=== PATIENT | male | born 1945 | race Hispanic/Latino ===

== ENCOUNTER 2020-11-30 02:43 | Inpatient (IN) | payer OTHER, MEDICARE ==
[~2020-11-30] VITALS: Ht 162.6 cm; Wt 68.5 kg
[2020-11-30 03:33] LABS: ABG BASE EXCESS -3.5 mmol/L (-2.0-3.0); ABG HCO3 21.9 mmol/L (21.0-28.0); ABG OXYGEN SATURATION 97.5 % (95.0-99.0); ABG PCO2 41 mmHg (35-48)
[2020-11-30 03:48] LABS: BASOPHILS % (AUTO) 0.4 % (0.0-5.0); EOSINOPHILS % (AUTO) 0.8 % (0.0-8.0); HEMATOCRIT 38.7 % (42-54); LYMPHOCYTES % (AUTO) 15.6 % (21.0-51.0); MEAN CORPUSCULAR HEMOGLOBIN 31.5 pg (27.0-33.0); MEAN CORPUSCULAR HGB CONC 34.6 g/dL (32.0-36.0); MEAN CORPUSCULAR VOLUME 90.8 fL (79-99); MONOCYTES % (AUTO) 6.3 % (3.0-13.0); NEUTROPHILS % (AUTO) 76.4 % (40.0-77.0); PLATELET COUNT (AUTO) 318 K/uL (130-400); RED BLOOD CELL COUNT(AUTO) 4.26 MIL/uL (4.50-6.20); RED CELL DISTRIBUTION WIDTH 12.9 % (11.0-15.5); WHITE BLOOD COUNT (AUTO) 16.6 K/uL (4.8-10.8)
[2020-11-30] MEDS ORDERED: NITROGLYCERIN 0.4 MG SL TAB SL ONE (03:54)
[2020-11-30] MEDS ORDERED: FUROSEMIDE 40MG VIAL ONE ×3 (03:54→20:56)
[2020-11-30] MEDS ORDERED: DILTIAZEM 125 MG/25 ML INJ IV ONE (03:57)
[2020-11-30 03:58] LABS: INR 1.01 (0.85-1.15)
[2020-11-30 03:59] LABS: PARTIAL THROMBOPLASTIN TIME 22.8 SEC (26.3-35.5)
[2020-11-30] MEDS ORDERED: AMIODARONE 150MG VIAL ONE ×2 (04:02→06:20)
[2020-11-30 04:05] LABS: ALBUMIN 3.9 g/dL (3.5-5.0); BILIRUBIN,TOTAL 0.8 mg/dL (0.2-1.0); TOTAL PROTEIN, SERUM 7.8 g/dL (6.0-8.3)
[2020-11-30 04:12] LABS: B-TYPE NATRIURETIC PEPTIDE 843 pg/mL (0-100)
[2020-11-30] MEDS ORDERED: ASPIRIN 81MG CHEW TAB ONE (05:44)
[2020-11-30] MEDS ORDERED: ENOXAPARIN SODIUM 80 MG/0.8 ML SQ ONE (05:44)
[2020-11-30] MEDS ORDERED: AMIODARONE 900MG VIAL 150 MG in DEXTROSE 5%-WATER 100 ML IV SCH (06:00)
[2020-11-30] MEDS ORDERED: DEXTROSE 5%-WATER 500 ML IV ONE (06:21)
[2020-11-30] MEDS ORDERED: AMIODARONE 900MG VIAL 900 MG in DEXTROSE 5%-WATER 500 ML IV SCH (07:15)
[2020-11-30 07:45] LABS: AMPHET/METH SCREEN,URINE NEGATIVE (NEGATIVE); BARBITURATE SCREEN, URINE NEGATIVE (NEGATIVE); BENZODIAZEPINES SCREEN,URINE NEGATIVE (NEGATIVE); CANNABINOID SCREEN,URINE NEGATIVE (NEGATIVE); COCAINE SCREEN,URINE NEGATIVE (NEGATIVE); OPIATE SCREEN,URINE NEGATIVE (NEGATIVE); PHENCYCLIDINE SCREEN,URINE NEGATIVE (NEGATIVE)
[2020-11-30] MEDS ORDERED: CEFTRIAXONE 1G VIAL ONE (08:02)
[2020-11-30] MEDS ORDERED: LACTATED RINGERS IV SCH (10:30)
[2020-11-30] MEDS ORDERED: FUROSEMIDE 40MG VIAL IV SCH (12:00)
[2020-11-30 12:43] LABS: ALBUMIN 3.5 g/dL (3.5-5.0); BILIRUBIN,TOTAL 0.6 mg/dL (0.2-1.0); CREATININE 1.2 mg/dL (0.5-1.5); POTASSIUM 4.4 mmol/L (3.5-5.1); TOTAL PROTEIN, SERUM 7.6 g/dL (6.0-8.3)
[2020-11-30] MEDS ORDERED: MORPHINE 2 MG SYG IV PRN (15:15)
[2020-11-30] MEDS ORDERED: ONDANSETRON 4MG INJ IV PRN (15:15)
[2020-11-30] MEDS ORDERED: ACETAMINOPHEN 325 MG TAB PO PRN ×2 (15:15)
[2020-11-30] MEDS ORDERED: AZITHROMYCIN 500MG+NS 250ML 250 ML IV ONE (15:47)
[2020-11-30] MEDS ORDERED: DOXYCYCLINE 100MG+NS 250ML 250 ML IV SCH (16:45)
[2020-11-30] MEDS ORDERED: DOXYCYCLINE 100MG+NS 250ML 250 ML IV ONE (18:33)
[2020-11-30] MEDS ORDERED: SIMV-43 PO (20:07)
[2020-11-30] MEDS ORDERED: METO100T7 PO (20:09)
[2020-11-30] MEDS ORDERED: AMLO5TAB5 PO (20:10)
[2020-11-30] MEDS ORDERED: METO50TA9 PO (20:11)
[2020-11-30] MEDS ORDERED: LISI2.5T13 PO (20:12)
[2020-11-30] MEDS ORDERED: METF-444 PO (20:13)
[2020-11-30] MEDS ORDERED: CLOP75TA14 PO (20:13)
[2020-11-30] MEDS ORDERED: ENOXAPARIN SODIUM 60 MG/0.6 ML SQ ONE (20:54)
[2020-11-30] MEDS ORDERED: KCL 20 MEQ ERTAB PO ONE (20:55)
[2020-11-30] MEDS ORDERED: FAMOTIDINE 20MG VIAL IV ONE (20:56)
[2020-11-30] MEDS ORDERED: FUROSEMIDE 40MG VIAL IVP SCH (21:00)
[2020-12-01 04:22] LABS: BASOPHILS % (AUTO) 0.3 % (0.0-5.0); EOSINOPHILS % (AUTO) 0.1 % (0.0-8.0); HEMATOCRIT 37.1 % (42-54); LYMPHOCYTES % (AUTO) 10.8 % (21.0-51.0); MEAN CORPUSCULAR HEMOGLOBIN 31.7 pg (27.0-33.0); MEAN CORPUSCULAR VOLUME 93.2 fL (79-99); NEUTROPHILS % (AUTO) 79.6 % (40.0-77.0); PLATELET COUNT (AUTO) 257 K/uL (130-400); RED BLOOD CELL COUNT(AUTO) 3.98 MIL/uL (4.50-6.20); RED CELL DISTRIBUTION WIDTH 13.2 % (11.0-15.5); WHITE BLOOD COUNT (AUTO) 9.6 K/uL (4.8-10.8)
[2020-12-01] MEDS ORDERED: POTASSIUM CHLORIDE 10% ELIXIR 20 MEQ/15 ML UDCUP ONE ×2 (07:58→15:43)
[2020-12-01] MEDS ORDERED: ENOXAPARIN SODIUM 60 MG/0.6 ML SQ ONE ×2 (07:58→23:10)
[2020-12-01] MEDS ORDERED: DOXYCYCLINE 100MG+NS 250ML 250 ML IV ONE (07:59)
[2020-12-01] MEDS ORDERED: CEFTRIAXONE 1G VIAL IV SCH (08:00)
[2020-12-01] MEDS ORDERED: ENOXAPARIN SODIUM 40 MG/0.4 ML SYRINGE SQ SCH (09:00)
[2020-12-01] MEDS ORDERED: AMIODARONE 200 MG TABLET PO SCH (09:22)
[2020-12-01 09:23] LABS: POTASSIUM 3.7 mmol/L (3.5-5.1)
[2020-12-01] MEDS ORDERED: AMIODARONE 200 MG TABLET PO ONE ×2 (10:24→23:11)
[2020-12-01] MEDS ORDERED: FUROSEMIDE 40MG VIAL ONE ×2 (12:08→23:11)
[2020-12-01] MEDS: AZITHROMYCIN 500MG+NS 250ML 250 ML IV SCH (15:15)
[2020-12-01] MEDS ORDERED: AZITHROMYCIN 500MG+NS 250ML 250 ML IV ONE (15:43)
[2020-12-01] MEDS: FUROSEMIDE 40MG VIAL IV SCH (20:00)
[2020-12-01] MEDS: FAMOTIDINE 20MG VIAL IV SCH (21:00)
[2020-12-01] MEDS: ENOXAPARIN SODIUM 60 MG/0.6 ML SQ SCH (21:00)
[2020-12-01] MEDS: KCL 20 MEQ ERTAB PO SCH (21:00)
[2020-12-01] MEDS: DOXYCYCLINE 100MG+NS 250ML 250 ML IV SCH (21:00)
[2020-12-01] MEDS ORDERED: KCL 20 MEQ ERTAB PO ONE (23:11)
[2020-12-01] MEDS ORDERED: FAMOTIDINE 20MG VIAL IV ONE (23:13)
[2020-12-01] MEDS ORDERED: INSULIN HUMULIN R 100 UNIT/ML 3ML ONE (23:30)
[2020-12-02] VITALS (7 sets, daily range): BP systolic 133–157; BP diastolic 67–97
[2020-12-02 03:45] LABS: BASOPHILS % (AUTO) 0.4 % (0.0-5.0); EOSINOPHILS % (AUTO) 0.1 % (0.0-8.0); HEMATOCRIT 38.9 % (42-54); LYMPHOCYTES % (AUTO) 8.1 % (21.0-51.0); MEAN CORPUSCULAR HGB CONC 34.2 g/dL (32.0-36.0); MEAN CORPUSCULAR VOLUME 90.7 fL (79-99); NEUTROPHILS % (AUTO) 81.9 % (40.0-77.0); PLATELET COUNT (AUTO) 280 K/uL (130-400); RED BLOOD CELL COUNT(AUTO) 4.29 MIL/uL (4.50-6.20); WHITE BLOOD COUNT (AUTO) 10.7 K/uL (4.8-10.8)
[2020-12-02] MEDS: FUROSEMIDE 40MG VIAL IV SCH ×3 (04:11→21:38)
[2020-12-02] MEDS: KCL 20 MEQ ERTAB PO SCH ×3 (08:37→21:00)
[2020-12-02] MEDS: ENOXAPARIN SODIUM 60 MG/0.6 ML SQ SCH ×2 (08:38→21:39)
[2020-12-02] MEDS: AMIODARONE 200 MG TABLET PO SCH ×2 (09:00→21:38)
[2020-12-02] MEDS: DOXYCYCLINE 100MG+NS 250ML 250 ML IV SCH ×3 (09:00→21:39)
[2020-12-02] MEDS ORDERED: AMIODARONE 200 MG TABLET PO ONE (09:06)
[2020-12-02] MEDS ORDERED: METOPROLOL TARTRATE 1 MG/ML 5ML VIAL IV PRN (09:15)
[2020-12-02] MEDS: CARVEDILOL 6.25 MG TABLET PO SCH ×2 (10:36→21:39)
[2020-12-02] MEDS: AZITHROMYCIN 500MG+NS 250ML 250 ML IV SCH (15:09)
[2020-12-02 17:21] LABS: CREATININE 1.6 mg/dL (0.5-1.5); POTASSIUM 5.3 mmol/L (3.5-5.1)
[2020-12-02] MEDS: FAMOTIDINE 20MG VIAL IV SCH (21:38)
[2020-12-02] MEDS: SIMVASTATIN 20 MG TABLET PO SCH (21:39)
[2020-12-03 03:24] VITALS: BP 145/77
[2020-12-03] MEDS: FUROSEMIDE 40MG VIAL IV SCH ×3 (04:49→22:09)
[2020-12-03 05:05] LABS: BASOPHILS % (AUTO) 0.3 % (0.0-5.0); EOSINOPHILS % (AUTO) 1.9 % (0.0-8.0); HEMATOCRIT 38.7 % (42-54); LYMPHOCYTES % (AUTO) 4.5 % (21.0-51.0); MEAN CORPUSCULAR HEMOGLOBIN 31.1 pg (27.0-33.0); MEAN CORPUSCULAR HGB CONC 34.1 g/dL (32.0-36.0); MEAN CORPUSCULAR VOLUME 91.1 fL (79-99); MONOCYTES % (AUTO) 6.1 % (3.0-13.0); NEUTROPHILS % (AUTO) 86.8 % (40.0-77.0); PLATELET COUNT (AUTO) 281 K/uL (130-400); RED BLOOD CELL COUNT(AUTO) 4.25 MIL/uL (4.50-6.20); RED CELL DISTRIBUTION WIDTH 12.8 % (11.0-15.5); WHITE BLOOD COUNT (AUTO) 16.2 K/uL (4.8-10.8)
[2020-12-03 05:27] LABS: CREATININE 1.7 mg/dL (0.5-1.5); CRP QUANTITATIVE 157.7 mg/L (0.00-9.0); POTASSIUM 5.5 mmol/L (3.5-5.1)
[2020-12-03 07:46] VITALS: BP 140/82
[2020-12-03] MEDS: DOXYCYCLINE 100MG+NS 250ML 250 ML IV SCH ×2 (08:23→22:12)
[2020-12-03] MEDS: LISINOPRIL 5 MG TABLET PO SCH (08:24)
[2020-12-03] MEDS: AMIODARONE 200 MG TABLET PO SCH (08:24)
[2020-12-03] MEDS: CARVEDILOL 6.25 MG TABLET PO SCH ×2 (08:25→22:10)
[2020-12-03] MEDS: ENOXAPARIN SODIUM 60 MG/0.6 ML SQ SCH (08:26)
[2020-12-03] MEDS ORDERED: GLUCAGON 1MG KIT 1 MG ML IM PRN (08:30)
[2020-12-03] MEDS ORDERED: DEXTROSE 50%-WATER 50 ML DISP.SYRIN IV PRN (08:30)
[2020-12-03] MEDS: INSULIN HUMULIN R 100 UNIT/ML 3ML SQ SCH ×3 (11:42→21:00)
[2020-12-03 11:44] VITALS: BP 120/62
[2020-12-03] MEDS: AZITHROMYCIN 500MG+NS 250ML 250 ML IV SCH (15:23)
[2020-12-03 16:00] VITALS: BP 100/59
[2020-12-03] MEDS: FAMOTIDINE 20MG VIAL IV SCH (22:09)
[2020-12-03] MEDS: SIMVASTATIN 20 MG TABLET PO SCH (22:09)
[2020-12-04] VITALS: BP 131/92
[2020-12-04] MEDS: FUROSEMIDE 40MG VIAL IV SCH (04:23)
[2020-12-04 05:44] VITALS: BP 120/62
[2020-12-04] MEDS: INSULIN HUMULIN R 100 UNIT/ML 3ML SQ SCH ×4 (06:25→21:00)
[2020-12-04 06:28] LABS: CREATININE 1.6 mg/dL (0.5-1.5); MAGNESIUM 1.9 mg/dL (1.80-2.40); POTASSIUM 4.3 mmol/L (3.5-5.1)
[2020-12-04 08:00] VITALS: BP 124/57
[2020-12-04] MEDS ORDERED: ENOXAPARIN SODIUM 60 MG/0.6 ML SQ SCH (09:00)
[2020-12-04] MEDS: DOXYCYCLINE 100MG+NS 250ML 250 ML IV SCH ×2 (09:20→20:12)
[2020-12-04] MEDS: LISINOPRIL 5 MG TABLET PO SCH (09:21)
[2020-12-04] MEDS: CARVEDILOL 6.25 MG TABLET PO SCH ×2 (09:22→20:13)
[2020-12-04] MEDS: FUROSEMIDE 40 MG TABLET PO SCH ×2 (09:23→17:04)
[2020-12-04 10:42] LABS: HEMATOCRIT 37.1 % (42-54); MEAN CORPUSCULAR HEMOGLOBIN 31.4 pg (27.0-33.0); MEAN CORPUSCULAR HGB CONC 34.2 g/dL (32.0-36.0); MEAN CORPUSCULAR VOLUME 91.8 fL (79-99); RED BLOOD CELL COUNT(AUTO) 4.04 MIL/uL (4.50-6.20); RED CELL DISTRIBUTION WIDTH 12.9 % (11.0-15.5)
[2020-12-04 14:01] VITALS: BP 121/55
[2020-12-04] MEDS: AZITHROMYCIN 500MG+NS 250ML 250 ML IV SCH (15:30)
[2020-12-04 18:26] VITALS: BP 114/64
[2020-12-04] MEDS: SIMVASTATIN 20 MG TABLET PO SCH (20:12)
[2020-12-04 20:13] VITALS: BP 119/67
[2020-12-04] MEDS: FAMOTIDINE 20MG VIAL IV SCH (20:13)
[2020-12-05 00:11] VITALS: BP 121/63
[2020-12-05 04:31] VITALS: BP 136/73
[2020-12-05 05:27] LABS: BASOPHILS % (AUTO) 0.3 % (0.0-5.0); EOSINOPHILS % (AUTO) 2.1 % (0.0-8.0); HEMATOCRIT 33.6 % (42-54); LYMPHOCYTES % (AUTO) 14.3 % (21.0-51.0); MEAN CORPUSCULAR HEMOGLOBIN 31.1 pg (27.0-33.0); MEAN CORPUSCULAR HGB CONC 34.5 g/dL (32.0-36.0); MEAN CORPUSCULAR VOLUME 90.1 fL (79-99); MONOCYTES % (AUTO) 9.9 % (3.0-13.0); PLATELET COUNT (AUTO) 277 K/uL (130-400); RED BLOOD CELL COUNT(AUTO) 3.73 MIL/uL (4.50-6.20); RED CELL DISTRIBUTION WIDTH 12.4 % (11.0-15.5)
[2020-12-05 05:36] LABS: CREATININE 1.5 mg/dL (0.5-1.5); POTASSIUM 3.5 mmol/L (3.5-5.1)
[2020-12-05 05:46] LABS: B-TYPE NATRIURETIC PEPTIDE 487 pg/mL (0-100)
[2020-12-05] MEDS: INSULIN HUMULIN R 100 UNIT/ML 3ML SQ SCH ×4 (06:17→20:48)
[2020-12-05 08:21] VITALS: BP 141/67
[2020-12-05] MEDS: FUROSEMIDE 40 MG TABLET PO SCH ×2 (09:51→16:40)
[2020-12-05] MEDS: LISINOPRIL 5 MG TABLET PO SCH (09:52)
[2020-12-05] MEDS: CARVEDILOL 6.25 MG TABLET PO SCH ×2 (09:52→20:32)
[2020-12-05 11:36] VITALS: BP 112/57
[2020-12-05] MEDS: DOXYCYCLINE 100MG+NS 250ML 250 ML IV SCH ×2 (12:42→20:31)
[2020-12-05] MEDS ORDERED: KCL 20 MEQ ERTAB PO SCH (13:00)
[2020-12-05] MEDS ORDERED: FURO40TA5 PO (13:16)
[2020-12-05] MEDS ORDERED: APIX5TAB PO (15:20)
[2020-12-05] MEDS ORDERED: CARV6.2579 PO (15:20)
[2020-12-05] MEDS ORDERED: DOXY100T2 PO (15:27)
[2020-12-05] MEDS ORDERED: AZIT250T9 PO (15:27)
[2020-12-05 16:40] VITALS: BP 116/71
[2020-12-05] MEDS: METFORMIN HCL 500 MG TABLET PO SCH (16:40)
[2020-12-05] MEDS: AZITHROMYCIN 500MG+NS 250ML 250 ML IV SCH (16:41)
[2020-12-05] MEDS ORDERED: METOPROLOL SUCCINATE 50 MG TAB.SR.24H PO SCH (17:00)
[2020-12-05] MEDS ORDERED: APIXABAN 5 MG TABLET PO SCH (18:00)
[2020-12-05 19:05] VITALS: BP 123/63
[2020-12-05] MEDS: FAMOTIDINE 20MG VIAL IV SCH (20:32)
[2020-12-05] MEDS: APIXABAN 5 MG TABLET PO SCH (20:33)
[2020-12-05] MEDS: SIMVASTATIN 20 MG TABLET PO SCH (20:33)
[2020-12-05] MEDS ORDERED: SIMVASTATIN 20 MG TABLET PO SCH (21:00)
[2020-12-06 00:02] VITALS: BP 118/67
[2020-12-06 03:44] VITALS: BP 129/73
[2020-12-06] MEDS: INSULIN HUMULIN R 100 UNIT/ML 3ML SQ SCH ×3 (05:51→16:09)
[2020-12-06 07:23] VITALS: BP 142/72
[2020-12-06] MEDS ORDERED: CLOPIDOGREL 75MG TAB PO SCH (09:00)
[2020-12-06] MEDS ORDERED: AMLODIPINE 5 MG TAB PO SCH (09:00)
[2020-12-06] MEDS ORDERED: METOPROLOL SUCCINATE 50 MG TAB.SR.24H PO SCH (09:00)
[2020-12-06] MEDS ORDERED: NON-FORMULARY MEDICATION 1 EACH (Lisinopril 2.5 MG) PO SCH (09:00)
[2020-12-06] MEDS ORDERED: ASPIRIN 81 MG EC TAB PO SCH (09:00)
[2020-12-06] MEDS: FUROSEMIDE 40 MG TABLET PO SCH ×2 (09:15→17:21)
[2020-12-06] MEDS: METFORMIN HCL 500 MG TABLET PO SCH ×2 (09:15→17:21)
[2020-12-06] MEDS: APIXABAN 5 MG TABLET PO SCH ×2 (09:16→20:52)
[2020-12-06] MEDS: LISINOPRIL 5 MG TABLET PO SCH (09:16)
[2020-12-06] MEDS: CARVEDILOL 6.25 MG TABLET PO SCH ×2 (09:17→20:51)
[2020-12-06] MEDS: DOXYCYCLINE 100MG+NS 250ML 250 ML IV SCH ×2 (09:17→21:00)
[2020-12-06 11:30] VITALS: BP 130/59
[2020-12-06] MEDS: AZITHROMYCIN 500MG+NS 250ML 250 ML IV SCH (14:33)
[2020-12-06 16:06] VITALS: BP 119/60
[2020-12-06 20:51] VITALS: BP 119/60
[2020-12-06] MEDS: SIMVASTATIN 20 MG TABLET PO SCH (20:51)
[2020-12-06] MEDS: FAMOTIDINE 20MG VIAL IV SCH (20:51)
[2021-02-19] MEDS ORDERED: ASPI-1197 PO (12:26)
[2021-02-19] MEDS ORDERED: AMIO200T68 PO (12:26)
[2021-02-19] MEDS ORDERED: MULT-1367 PO (12:26)
[2021-02-19] MEDS ORDERED: OMEG-148 PO (12:26)
[2021-06-10] MEDS ORDERED: AMIO100T PO (15:12)
[2021-06-10] MEDS ORDERED: LISI20TA24 PO (15:12)
[2021-06-10] MEDS ORDERED: NITR0.4T50 SL (15:12)
== END 2020-12-06 21:40 | disposition home or self-care (01) | DRG 177 ==
LOC: EDH 02:43 → EDHIP 06:58 → 4CH 12-02
PROVIDERS: ADMIT Internal Medicine; ATTEND Internal Medicine
PROC: 5A09357 Assistance with Respiratory Ventilation, Less than 24 Consecutive Hours, Continuous Positive Airway Pressure (ICD-10-PCS; principal; 2020-11-30)
PROC: 5A2204Z Restoration of Cardiac Rhythm, Single (ICD-10-PCS; 2020-11-30)
PROC: 5A09357 Assistance with Respiratory Ventilation, Less than 24 Consecutive Hours, Continuous Positive Airway Pressure (ICD-10-PCS; 2020-12-01)
PROC: 0W993ZZ Drainage of Right Pleural Cavity, Percutaneous Approach (ICD-10-PCS; 2020-12-01)
DX: J15.6 Pneumonia due to other Gram-negative bacteria (principal); I50.43 Acute on chronic combined systolic (congestive) and diastolic (congestive) heart failure; J96.01 Acute respiratory failure with hypoxia; I47.2 Ventricular tachycardia; I42.9 Cardiomyopathy, unspecified; E87.1 Hypo-osmolality and hyponatremia; J91.8 Pleural effusion in other conditions classified elsewhere; I48.91 Unspecified atrial fibrillation; N28.9 Disorder of kidney and ureter, unspecified; Z20.822 Contact with and (suspected) exposure to COVID-19; E11.65 Type 2 diabetes mellitus with hyperglycemia; E78.5 Hyperlipidemia, unspecified; I11.0 Hypertensive heart disease with heart failure; I08.0 Rheumatic disorders of both mitral and aortic valves; I25.10 Atherosclerotic heart disease of native coronary artery without angina pectoris; Z79.01 Long term (current) use of anticoagulants; Z88.0 Allergy status to penicillin; Z79.02 Long term (current) use of antithrombotics/antiplatelets; Z79.82 Long term (current) use of aspirin; Z79.899 Other long term (current) drug therapy; Z87.891 Personal history of nicotine dependence; Z95.1 Presence of aortocoronary bypass graft; Z95.820 Peripheral vascular angioplasty status with implants and grafts
CPT/HCPCS: 36415; 36600; 71045; 78582; 80048; 80053; 80305; 82803; 82948; 83735; 83880; 84145; 84484; 85025; 85027; 85378; 85610; 85730; 86140; 87040; 87426; 93005; 93306; 93356; 94660; 97039; 99291; A9540; A9558; G0378; J0282; J0456; J0696; J1650; J1815; J1940; J3490; J7060; U0003

== ENCOUNTER → 2020-12-31 | Outpatient (CLI) | payer OTHER, MEDICARE ==
[~2020-12-31] VITALS: Ht 165.1 cm; Wt 62.6 kg
[~2020-12-31] MED LIST: APIX5TAB PO; AZIT250T9 PO; CARV6.2579 PO; DOXY100T2 PO; FURO40TA5 PO; LISI2.5T2 PO; METF-444 PO; REGADENOSON 0.4 MG/5 ML PF SYG IVP SCH; SIMV-43 PO
== END | disposition home or self-care (01) ==
LOC: SHCH 08:26
PROVIDERS: ATTEND Internal Medicine Cardiovascular Disease
DX: I25.810 Atherosclerosis of coronary artery bypass graft(s) without angina pectoris (principal); I48.91 Unspecified atrial fibrillation
CPT/HCPCS: 78452; 93017; 96374; A9500 ×2; J2785

== ENCOUNTER 2021-02-20 06:46 | Day surgery (SDC) | payer OTHER, MEDICARE ==
[2021-02-18 10:08] LABS: EOSINOPHILS % (AUTO) 2.7 % (0.0-8.0); HEMATOCRIT 36.7 % (42-54); LYMPHOCYTES % (AUTO) 15.6 % (21.0-51.0); MEAN CORPUSCULAR HEMOGLOBIN 31.4 pg (27.0-33.0); MEAN CORPUSCULAR HGB CONC 34.1 g/dL (32.0-36.0); MEAN CORPUSCULAR VOLUME 92.2 fL (79-99); MONOCYTES % (AUTO) 6.1 % (3.0-13.0); NEUTROPHILS % (AUTO) 74.4 % (40.0-77.0); PLATELET COUNT (AUTO) 264 K/uL (130-400); RED BLOOD CELL COUNT(AUTO) 3.98 MIL/uL (4.50-6.20); RED CELL DISTRIBUTION WIDTH 15.2 % (11.0-15.5); WHITE BLOOD COUNT (AUTO) 8.4 K/uL (4.8-10.8)
[2021-02-18 10:21] LABS: CREATININE 1.5 mg/dL (0.5-1.5)
[2021-02-19 12:46] VITALS: BP 184/68
[2021-02-20] VITALS (20 sets, daily range): BP systolic 91–173; BP diastolic 40–77
[~2021-02-20] VITALS: Ht 157.5 cm; Wt 62.6 kg
[~2021-02-20 06:46] MED LIST changes: +AMIO200T6 PO; +ASPI-1197 PO; -AZIT250T9 PO; -DOXY100T2 PO; +MULT-1367 PO; +OMEG-148 PO; -REGADENOSON 0.4 MG/5 ML PF SYG IVP SCH; +SODIUM CHLORIDE 0.9% 500ML 500 ML IV SCH
[2021-02-20] MEDS ORDERED: PROPOFOL 10 MG/ML 20ML VIAL IV ONE (08:50)
[2021-02-20] MEDS ORDERED: PHENYLEPHRINE HCL 10 MG/ML 1ML VIAL IV ONE (08:51)
== END 2021-02-20 10:30 | disposition home or self-care (01) ==
LOC: DAH 06:46
PROVIDERS: ATTEND Internal Medicine Cardiovascular Disease
DX: I48.19 Other persistent atrial fibrillation (principal); Z20.822 Contact with and (suspected) exposure to COVID-19; I25.2 Old myocardial infarction; I44.0 Atrioventricular block, first degree; E11.51 Type 2 diabetes mellitus with diabetic peripheral angiopathy without gangrene; I42.0 Dilated cardiomyopathy; I50.9 Heart failure, unspecified; E78.5 Hyperlipidemia, unspecified; Z79.01 Long term (current) use of anticoagulants; Z90.49 Acquired absence of other specified parts of digestive tract; Z95.5 Presence of coronary angioplasty implant and graft; Z87.891 Personal history of nicotine dependence; Z88.8 Allergy status to other drugs, medicaments and biological substances; Z82.49 Family history of ischemic heart disease and other diseases of the circulatory system; Z95.1 Presence of aortocoronary bypass graft; Z88.0 Allergy status to penicillin
CPT/HCPCS: 36415; 80048; 82948; 85025; 92960; 93005 ×3; A4215; A4216; A4221; A4222; A4223 ×3; A4606; A4615; A4663; C9803; J2370; J2704; U0003

== ENCOUNTER → 2021-05-09 | Outpatient (CLI) | payer OTHER, MEDICARE ==
[~2021-05-09] MED LIST changes: -SODIUM CHLORIDE 0.9% 500ML 500 ML IV SCH
== END | disposition home or self-care (01) ==
LOC: SHCH 10:11
PROVIDERS: ATTEND Internal Medicine Cardiovascular Disease
DX: I50.31 Acute diastolic (congestive) heart failure (principal)
CPT/HCPCS: 93306; 93356

== ENCOUNTER 2021-06-11 05:34 | Day surgery (SDC) | payer OTHER, MEDICARE ==
[2021-06-10 14:50] LABS: EOSINOPHILS % (AUTO) 2.4 % (0.0-8.0); HEMATOCRIT 34.3 % (42-54); LYMPHOCYTES % (AUTO) 23.7 % (21.0-51.0); MEAN CORPUSCULAR HEMOGLOBIN 33.3 pg (27.0-33.0); MEAN CORPUSCULAR HGB CONC 33.8 g/dL (32.0-36.0); MEAN CORPUSCULAR VOLUME 98.6 fL (79-99); MONOCYTES % (AUTO) 9.3 % (3.0-13.0); NEUTROPHILS % (AUTO) 63.1 % (40.0-77.0); PLATELET COUNT (AUTO) 231 K/uL (130-400); RED BLOOD CELL COUNT(AUTO) 3.48 MIL/uL (4.50-6.20); RED CELL DISTRIBUTION WIDTH 13.9 % (11.0-15.5); WHITE BLOOD COUNT (AUTO) 6.2 K/uL (4.8-10.8)
[2021-06-10 15:04] LABS: INR 0.98 (0.85-1.15); PROTHROMBIN TIME 10.7 SEC (9.6-11.6)
[2021-06-10 15:05] VITALS: BP 171/69
[2021-06-10 15:05] LABS: PARTIAL THROMBOPLASTIN TIME 24.2 SEC (26.3-35.5)
[2021-06-10 15:13] LABS: CREATININE 1.4 mg/dL (0.5-1.5); POTASSIUM 4.8 mmol/L (3.5-5.1)
[~2021-06-11] VITALS: Ht 162.6 cm; Wt 65.0 kg
[2021-06-11] VITALS (9 sets, daily range): BP systolic 105–166; BP diastolic 46–65
[~2021-06-11 05:34] MED LIST changes: +AMIO100T PO; -AMIO200T6 PO; -LISI2.5T2 PO; +LISI20TA24 PO; +NITR0.4T50 SL
[2021-06-11] MEDS ORDERED: VANCOMYCIN KIT 250 ML IV SCH (06:00)
[2021-06-11] MEDS ORDERED: 0.9% NACL 500ML IV.SOLN 500 ML IV SCH (06:00)
[2021-06-11] MEDS ORDERED: 0.9%NACL 1000ML 1,000 ML IV ONE (06:15)
[2021-06-11] MEDS ORDERED: MEPERIDINE-PF 25 MG/ML SYG ONE ×2 (07:33→08:08)
[2021-06-11] MEDS ORDERED: BUPIVACAINE/PF 0.25% 30ML VIAL IJ ONE (07:34)
[2021-06-11] MEDS ORDERED: LIDOCAINE HCL 1% MDV 50ML VIAL ONE (07:34)
[2021-06-11] MEDS ORDERED: MIDAZOLAM HCL 1 MG/ML 2ML VIAL ONE ×2 (07:34→08:08)
[2021-06-11] MEDS ORDERED: TRAM50TA4 PO (09:18)
[2021-06-11] MEDS ORDERED: ACETAMINOPHEN WITH CODEINE 1 TAB TAB PO PRN (09:30)
== END 2021-06-11 13:40 | disposition home or self-care (01) ==
LOC: DAH 05:34
PROVIDERS: ATTEND Internal Medicine Cardiovascular Disease
DX: I25.5 Ischemic cardiomyopathy (principal); I11.0 Hypertensive heart disease with heart failure; I50.42 Chronic combined systolic (congestive) and diastolic (congestive) heart failure; I47.2 Ventricular tachycardia; I48.0 Paroxysmal atrial fibrillation; E11.51 Type 2 diabetes mellitus with diabetic peripheral angiopathy without gangrene; I35.0 Nonrheumatic aortic (valve) stenosis; E78.5 Hyperlipidemia, unspecified; I25.10 Atherosclerotic heart disease of native coronary artery without angina pectoris; Z88.0 Allergy status to penicillin; Z95.1 Presence of aortocoronary bypass graft; Z79.899 Other long term (current) drug therapy; Z79.84 Long term (current) use of oral hypoglycemic drugs; Z79.82 Long term (current) use of aspirin; Z79.01 Long term (current) use of anticoagulants; Z98.890 Other specified postprocedural states; Z87.891 Personal history of nicotine dependence; Z82.49 Family history of ischemic heart disease and other diseases of the circulatory system
CPT/HCPCS: 33249; 36415; 71045; 80048; 82948 ×2; 85025; 85610; 85730; 93005; A4215; A4216; A4221; A4222; A4223 ×3; A4606; A4663; C1721; C1895; C1896; J2175 ×2; J2250 ×2; J3370 ×2; J3490 ×2; J7030; 99156; 99157